=== PATIENT | male | born 1985 | race Two or more races ===

== ENCOUNTER → 2020-10-12 | Outpatient (CLI) | payer BC ==
[2020-10-12 11:24] LABS: Basophils # (auto) 0 10 ^3/uL (0-0.2); Basophils % (auto) 0.7 % (0.0-2.0); Eosinophils # (auto) 0.1 10 ^3/uL (0-0.8); Eosinophils % (auto) 1.7 % (0.0-7.0); Hematocrit 44.5 % (41.0-53.0); Hemoglobin 15.5 g/dL (13.5-17.5); Lymphocytes # (auto) 2.3 10 ^3/uL (0.4-5.4); Lymphocytes % (auto) 33.4 % (10.0-50.0); Mean Corpuscular Hemoglobin 31.8 pg (28.0-32.0); Mean Corpuscular Hgb Conc. 34.8 g/dL (32.0-36.0); Mean Corpuscular Volume 91.6 fL (80.0-100.0); Monocytes # (auto) 0.4 10 ^3/uL (0-1.3); Neutrophils # (auto) 3.9 10 ^3/uL (1.6-8.6); Neutrophils % (auto) 58.2 % (37.0-80.0); Nucleated Red Blood Cells % 0.1 %; Platelet Count (auto) 419 10^3/uL (140-450); Red Blood Cells 4.86 10^6/uL (4.5-5.90); Red Cell Distribution Width 13.5 % (11.8-14.3); White Blood Cell 6.8 10^3/uL (4.4-10.8)
[2020-10-12 12:51] LABS: Potassium 4.1 mmol/L (3.5-5.1)
[2020-10-12 12:59] LABS: Albumin 3.5 g/dL (3.4-5.0); BUN/Creatinine Ratio 9.1; Bilirubin, Total 0.6 mg/dL (0.2-1.0); Calcium 8.4 mg/dL (8.5-10.1); Total Protein 7.6 g/dL (6.4-8.2)
[2020-10-12 15:45] LABS: Folate (Folic Acid) 9.21 ng/mL (5.38-24)
== END | disposition home or self-care (01) ==
LOC: LAB 11:07
PROVIDERS: ATTEND Internal Medicine
DX: Z00.00 Encounter for general adult medical examination without abnormal findings (principal); E78.5 Hyperlipidemia, unspecified; M23.91 Unspecified internal derangement of right knee; K27.9 Peptic ulcer, site unspecified, unspecified as acute or chronic, without hemorrhage or perforation
CPT/HCPCS: 36415; 80053; 80061; 82306; 82607; 82746; 83036; 84207; 84425; 84443; 85025; 85049

== ENCOUNTER → 2021-08-06 | Outpatient (CLI) | payer BC ==
[2021-08-06 15:09] LABS: Basophils # (auto) 0.1 10 ^3/uL (0-0.2); Basophils % (auto) 0.9 % (0.0-2.0); Eosinophils # (auto) 0.1 10 ^3/uL (0-0.8); Hematocrit 42.5 % (41.0-53.0); Hemoglobin 14.6 g/dL (13.5-17.5); Lymphocytes # (auto) 2.7 10 ^3/uL (0.4-5.4); Lymphocytes % (auto) 40.9 % (10.0-50.0); Mean Corpuscular Hemoglobin 30.2 pg (28.0-32.0); Mean Corpuscular Hgb Conc. 34.4 g/dL (32.0-36.0); Mean Corpuscular Volume 87.8 fL (80.0-100.0); Monocytes # (auto) 0.4 10 ^3/uL (0-1.3); Neutrophils # (auto) 3.3 10 ^3/uL (1.6-8.6); Neutrophils % (auto) 51.2 % (37.0-80.0); Nucleated Red Blood Cells % 0.2 %; Red Blood Cells 4.84 10^6/uL (4.5-5.90); Red Cell Distribution Width 13.8 % (11.8-14.3); White Blood Cell 6.5 10^3/uL (4.4-10.8)
[2021-08-06 15:40] LABS: Potassium 4.3 mmol/L (3.5-5.1)
[2021-08-06 15:48] LABS: Albumin 3.8 g/dL (3.4-5.0); BUN/Creatinine Ratio 7.6; Bilirubin, Total 0.3 mg/dL (0.2-1.0); Calcium 9.5 mg/dL (8.5-10.1)
== END | disposition home or self-care (01) ==
LOC: LAB 14:42
PROVIDERS: ATTEND Nurse Practitioner Family
DX: Z13.228 Encounter for screening for other metabolic disorders (principal); Z13.220 Encounter for screening for lipoid disorders
CPT/HCPCS: 36415; 80053; 80061; 83036; 84443; 85025

== ENCOUNTER 2022-02-22 14:13 | Emergency (ER) | payer BC, OTHER ==
[~2022-02-22] VITALS: Ht 172.7 cm; Wt 83.2 kg
[2022-02-22 14:32] VITALS: BP 136/96
[2022-02-22] MEDS ORDERED: CEPH-510 PO (15:23)
[2022-02-22] MEDS ORDERED: TETANUS-DIPTH-ACEL PERTUSSIS 0.5ML SYR Tdap IM ONE (15:30)
== END 2022-02-22 15:35 | disposition home or self-care (01) ==
LOC: ER 14:13 → EEVIPCON 14:13 → ER 15:34
DX: S51.812A Laceration without foreign body of left forearm, initial encounter (principal); W22.8XXA Striking against or struck by other objects, initial encounter; Y93.89 Activity, other specified; Y92.89 Other specified places as the place of occurrence of the external cause; Y99.8 Other external cause status
CPT/HCPCS: 12002; 90471; 90715